=== PATIENT | female | born 1970 | race Caucasian/White ===

== ENCOUNTER → 2019-01-31 15:46 | Outpatient (CLI) | payer BC, SELFPAY ==
--- NOTE | 2019-01-31 15:51 | XR_ITS ---
PROCEDURE: XR LUMBAR SPINE MIN 4V CLINICAL INDICATION: LOW BACK PAIN especially when bending over or heavy lifting COMPARISON: LS5 LUMBAR SPINE 5 VIEWS from 09/08/2012 FINDINGS: There is some straightening of the normal curvature at the thoracolumbar junction. All lumbar vertebrae appear intact. There is prominent disc space narrowing at the L5-S1 level with endplate sclerosis and these are new findings not having been seen on the previous lumbar spine films 09/08/2012 the remaining disc spaces appear normal. There is no pars defect. There is minor sclerosis of the SI joints bilaterally but this was noted previously. There are mild hypertrophic facet changes at the L5-S1 level. IMPRESSION: Interval development of prominent degenerate disc disease L5-S1 along with hypertrophic facet changes at this level as well Dictated by: Dr. Jose Guadalupe Guaman MD 01/31/2019 18:[address] Jose Guadalupe Guaman MD in [place] 01/31/2019 18:50
== END ==
PROVIDERS: PCP Internal Medicine Adolescent Medicine; Visit Provider Internal Medicine Adolescent Medicine
DX: M54.5 Low back pain (principal)
CPT/HCPCS: 72110

== ENCOUNTER → 2020-05-22 10:38 | Outpatient (CLI) | payer BC, SELFPAY ==
[2020-05-22 11:14] LABS: Basophils % 0.6 % (0.1-2.0); Eosinophils # 0.1 K/mm3 (0.0-0.4); Eosinophils % 1.3 % (0.1-12.0); Hematocrit 44.2 % (37.0-47.0); Hemoglobin 14.4 g/dL (12.2-16.2); Lymphocytes # 1.8 K/mm3 (0.7-4.5); Lymphocytes % 26.5 % (10-50); Mean Corpuscular HGB Conc 32.5 g/dL (31.8-35.4); Mean Corpuscular Hemoglobin 29.6 pg (27.0-31.2); Mean Corpuscular Volume 91.2 fl (81-99); Mean Platelet Volume 8.8 fl (7.4-10.4); Monocytes # 0.3 K/mm3 (0.1-1.0); Monocytes % 4.9 % (1.7-9.3); Neutrophils # 4.6 K/mm3 (1.8-7.8); Neutrophils % 66.8 % (37.0-80.0); Platelet Count 301 K/mm3 (142-424); Red Blood Count 4.85 M/mm3 (4.20-5.40); Red Cell Distribution Width 13.2 % (11.5-17.5); White Blood Count 6.9 K/mm3 (4.8-10.8)
[2020-05-22 12:02] LABS: Erythrocyte Sedimentation Rate 6 mm/hr (0-30)
[2020-05-22 12:08] LABS: Chloride 102 mmol/L (98-107); Potassium 4.6 mmoL/L (3.5-5.1); Sodium 138 mmol/L (136-145)
[2020-05-22 12:10] LABS: Alanine Aminotransferase 18 U/L (12-78); Aspartate Amino Transferase 26 U/L (14-36); Blood Urea Nitrogen 10 mg/dl (7-17); Estimated Glomerular Filt Rate 75 ml/min (>60); GFR (African American) 91 ML/MIN (>60)
[2020-05-22 12:11] LABS: Albumin/Globulin Ratio 2.1 (1.1-1.8); Alkaline Phosphatase 63 U/L (38-126); Anion Gap 12.6 mEq/L (5-15); Bilirubin,Total 0.7 mg/dl (0.2-1.3); Carbon Dioxide 28 mmol/L (22.0-30.0); Chol/HDL Ratio 3.4 (1-3.5); Cholesterol 214 mg/dl (140-200); Globulin 2.4 g/dL (1.3-3.2); Glucose 78 mg/dl (74-100); HDL Cholesterol 63 mg/dl (40-60); Total Protein,Serum 7.4 g/dl (6.3-8.2); Triglycerides 83 mg/dl (30-150); VLDL Cholesterol 17 mg/dL (0-40)
[2020-05-22 12:22] LABS: Direct LDL Cholesterol 137.08 mg/dL (100-129)
[2020-05-23 09:15] LABS: FSH 4.2 mIU/mL (.)
[2020-05-29 06:16] LABS: Testosterone, Total, LC/MS 35.8 ng/dL (.); Testosterone,Free 1.6 pg/mL (0.0-4.2)
== END ==
PROVIDERS: Obstetrics & Gynecology; Visit Provider Internal Medicine Adolescent Medicine
DX: N95.1 Menopausal and female climacteric states (principal); E78.5 Hyperlipidemia, unspecified; M17.0 Bilateral primary osteoarthritis of knee; Z79.890 Hormone replacement therapy
CPT/HCPCS: 36415; 80053; 80061; 82670; 83001; 84402; 84403; 85025; 85651

== ENCOUNTER → 2021-02-08 10:10 | Outpatient (CLI) | payer BC, SELFPAY ==
[2021-02-09 10:25] LABS: FSH 2.4 mIU/mL (.)
[2021-02-11 15:35] LABS: Testosterone, Total, LC/MS 42.9 ng/dL (.); Testosterone,Free 1.4 pg/mL (0.0-4.2)
== END ==
PROVIDERS: Visit Provider Obstetrics & Gynecology
DX: N95.1 Menopausal and female climacteric states (principal); Z79.890 Hormone replacement therapy
CPT/HCPCS: 36415; 82670; 83001; 84402; 84403

== ENCOUNTER → 2021-05-13 11:18 | Outpatient (CLI) | payer BC, SELFPAY ==
[2021-05-14 04:29] LABS: FSH 2.2 mIU/mL (.)
[2021-05-27 12:24] LABS: Testosterone, Total, LC/MS 76.1 ng/dL (.); Testosterone,Free 1.8 pg/mL (0.0-4.2)
== END ==
PROVIDERS: Visit Provider Obstetrics & Gynecology
DX: N95.1 Menopausal and female climacteric states (principal); Z79.890 Hormone replacement therapy
CPT/HCPCS: 36415; 82670; 83001; 84402; 84403

== ENCOUNTER → 2021-08-10 11:33 | Outpatient (CLI) | payer BC, SELFPAY ==
[2021-08-11 11:41] LABS: FSH 2.2 mIU/mL (.)
[2021-08-14 05:09] LABS: Testosterone, Total, LC/MS 88.4 ng/dL (.); Testosterone,Free 0.7 pg/mL (0.0-4.2)
== END ==
PROVIDERS: PCP Internal Medicine Adolescent Medicine; Visit Provider Obstetrics & Gynecology
DX: N95.1 Menopausal and female climacteric states (principal); Z79.890 Hormone replacement therapy
CPT/HCPCS: 36415; 82670; 83001; 84402; 84403

== ENCOUNTER → 2021-10-07 10:16 | Outpatient (CLI) | payer BC, SELFPAY ==
--- NOTE | 2021-10-07 10:21 | XR_ITS ---
FINAL REPORT CLINICAL HISTORY: LT FOOT PAIN FINDINGS: AP, oblique and lateral views of the left foot were obtained. There is no prior exam for comparison. There is no acute fracture or dislocation. There is mild degenerative joint disease. Soft tissues are normal. IMPRESSION: No acute osseous abnormality of the left foot. Reviewed, Interpreted and Dictated by Irina Smith MD Transcribed by Savanah Conrad Authenticated and [facility]
== END ==
PROVIDERS: PCP Internal Medicine Adolescent Medicine; Visit Provider Internal Medicine Adolescent Medicine
DX: M79.672 Pain in left foot (principal)
CPT/HCPCS: 73630

== ENCOUNTER → 2021-11-10 11:53 | Outpatient (CLI) | payer BC, SELFPAY ==
[2021-11-10 13:12] LABS: Anion Gap 12.6 mEq/L (5-15); Blood Urea Nitrogen 9 mg/dl (7-17); Calcium 9.1 mg/dl (8.4-10.2); Carbon Dioxide 29 mmol/L (22.0-30.0); Chloride 101 mmol/L (98-107); Chol/HDL Ratio 3.1 (1-3.5); Cholesterol 192 mg/dl (140-200); Estimated Glomerular Filt Rate 75 ml/min (>60); GFR (African American) 91 ML/MIN (>60); Glucose 114 mg/dl (74-100); HDL Cholesterol 62 mg/dl (40-60); Potassium 4.6 mmoL/L (3.5-5.1); Sodium 138 mmol/L (136-145); Triglycerides 126 mg/dl (30-150); VLDL Cholesterol 25 mg/dL (0-40)
[2021-11-10 13:23] LABS: Direct LDL Cholesterol 107.52 mg/dL (100-129)
[2021-11-11 09:26] LABS: FSH 2.5 mIU/mL (.)
[2021-11-13 12:09] LABS: Testosterone, Total, LC/MS 51.4 ng/dL (.)
== END ==
PROVIDERS: PCP Internal Medicine Adolescent Medicine; Referring Provider Obstetrics & Gynecology; Visit Provider Internal Medicine Adolescent Medicine
DX: N95.1 Menopausal and female climacteric states (principal); Z79.890 Hormone replacement therapy
CPT/HCPCS: 36415; 80048; 80061; 82670; 83001; 84402; 84403

== ENCOUNTER → 2021-11-15 09:12 | Outpatient (CLI) | payer BC, SELFPAY ==
[2021-11-15 12:58] LABS: Hemoglobin A1C 5.2 % (4.0-6.0)
== END ==
PROVIDERS: PCP Internal Medicine Adolescent Medicine; Visit Provider Internal Medicine Adolescent Medicine
DX: R73.09 Other abnormal glucose (principal)
CPT/HCPCS: 36415; 83036

== ENCOUNTER → 2022-02-17 11:16 | Outpatient (CLI) | payer BC, SELFPAY ==
[2022-02-18 09:12] LABS: FSH 3.4 mIU/mL (.)
[2022-02-21 02:39] LABS: Testosterone, Total, LC/MS 58.1 ng/dL (.); Testosterone,Free 0.9 pg/mL (0.0-4.2)
== END ==
PROVIDERS: PCP Internal Medicine Adolescent Medicine; Visit Provider Obstetrics & Gynecology
DX: N95.1 Menopausal and female climacteric states (principal); Z79.890 Hormone replacement therapy
CPT/HCPCS: 36415; 82670; 83001; 84402; 84403

== ENCOUNTER → 2022-05-18 10:36 | Outpatient (CLI) | payer BC, SELFPAY ==
[2022-05-19 10:36] LABS: FSH 2.7 mIU/mL (.)
[2022-05-23 20:09] LABS: Testosterone, Total, LC/MS 47.5 ng/dL (.); Testosterone,Free 0.4 pg/mL (0.0-4.2)
== END ==
PROVIDERS: PCP Internal Medicine Adolescent Medicine; Visit Provider Obstetrics & Gynecology
DX: N95.1 Menopausal and female climacteric states (principal); Z79.890 Hormone replacement therapy
CPT/HCPCS: 36415; 82670; 83001; 84402; 84403

== ENCOUNTER → 2022-08-23 10:40 | Outpatient (CLI) | payer BC, SELFPAY ==
[2022-08-24 08:20] LABS: FSH 3.2 mIU/mL (.)
[2022-08-30 00:07] LABS: Free Testosterone (Direct) 1.1 pg/mL (0.0-4.2)
== END ==
PROVIDERS: PCP Internal Medicine Adolescent Medicine; Visit Provider Obstetrics & Gynecology
DX: N95.1 Menopausal and female climacteric states (principal); Z79.890 Hormone replacement therapy
CPT/HCPCS: 36415; 82670; 83001

== ENCOUNTER → 2022-11-22 12:09 | Outpatient (CLI) | payer BC, SELFPAY ==
[2022-11-24 13:58] LABS: FSH 4.3 mIU/mL (.)
[2022-11-30 19:25] LABS: Free Testosterone (Direct) 0.7 pg/mL (0.0-4.2); Testosterone, Total, LC/MS 35.1 ng/dL (.)
== END ==
PROVIDERS: PCP Internal Medicine Adolescent Medicine; Visit Provider Obstetrics & Gynecology
DX: N95.1 Menopausal and female climacteric states (principal); Z79.890 Hormone replacement therapy
CPT/HCPCS: 36415; 82670; 83001

== ENCOUNTER 2023-02-21 10:25 | Outpatient (CLI) | payer BC, SELFPAY ==
[2023-02-22 15:02] LABS: FSH 4.9 mIU/mL (.)
[2023-03-02 18:09] LABS: Free Testosterone (Direct) 1.4 pg/mL (0.0-4.2); Testosterone, Total, LC/MS 73.3 ng/dL (.)
== END 2023-02-21 23:59 ==
LOC: LAB 10:25
PROVIDERS: PCP Internal Medicine Adolescent Medicine; Visit Provider Obstetrics & Gynecology
DX: N95.1 Menopausal and female climacteric states (principal); Z79.890 Hormone replacement therapy
CPT/HCPCS: 36415; 82670; 83001

== ENCOUNTER 2023-05-22 09:57 | Outpatient (CLI) | payer BC, SELFPAY ==
[2023-05-23 08:26] LABS: FSH 5.4 mIU/mL (.); Testosterone,Total 23 ng/dL (4-50)
[2023-05-26 11:17] LABS: Testosterone,Free 0.5 pg/mL (0.0-4.2)
== END 2023-05-22 23:59 ==
LOC: LAB 09:58
PROVIDERS: PCP Internal Medicine Adolescent Medicine; Visit Provider Obstetrics & Gynecology
DX: N95.1 Menopausal and female climacteric states (principal); Z79.890 Hormone replacement therapy
CPT/HCPCS: 36415; 82670; 83001; 84402; 84403

== ENCOUNTER 2023-08-22 10:45 | Outpatient (CLI) | payer BC, SELFPAY ==
[2023-08-23 08:21] LABS: FSH 4.4 mIU/mL (.)
[2023-08-25 02:49] LABS: Testosterone,Free 1.6 pg/mL (0.0-4.2)
[2023-08-28 20:22] LABS: Testosterone, Total, LC/MS 47 ng/dL (.)
== END 2023-08-22 23:59 | disposition home or self-care (01) ==
LOC: LAB 10:45
PROVIDERS: PCP Internal Medicine Adolescent Medicine; Visit Provider Obstetrics & Gynecology
DX: N95.1 Menopausal and female climacteric states (principal); Z79.890 Hormone replacement therapy
CPT/HCPCS: 36415; 82670; 83001; 84402; 84403

== ENCOUNTER 2023-11-21 11:00 | Outpatient (POV) | payer BC, SELFPAY | END 2023-11-21 23:59 | disposition home or self-care (01) | LOC: SC 11-22 06:33 | PROVIDERS: Visit Provider Dermatology | DX: Z00.00 Encounter for general adult medical examination without abnormal findings (principal) ==

== ENCOUNTER 2023-11-21 11:32 | Outpatient (CLI) | payer BC, SELFPAY ==
[2023-11-22 12:20] LABS: FSH 4.1 mIU/mL (.)
[2023-11-26 00:11] LABS: Testosterone,Free 2.1 pg/mL (0.0-4.2)
[2023-12-01 21:28] LABS: Testosterone, Total, LC/MS 55 ng/dL (.)
== END 2023-11-21 23:59 | disposition home or self-care (01) ==
LOC: LAB 11:36
PROVIDERS: PCP Internal Medicine Adolescent Medicine; Visit Provider Obstetrics & Gynecology
DX: N95.1 Menopausal and female climacteric states (principal); Z79.890 Hormone replacement therapy
CPT/HCPCS: 36415; 82670; 83001; 84402; 84403

== ENCOUNTER 2024-02-20 10:46 | Outpatient (CLI) | payer BC, SELFPAY ==
[2024-02-21 03:55] LABS: FSH 3.4 mIU/mL (.)
[2024-02-26 11:10] LABS: Free Testosterone (Direct) 0.6 pg/mL (0.0-4.2)
== END 2024-02-20 23:59 | disposition home or self-care (01) ==
LOC: LAB 10:46
PROVIDERS: PCP Internal Medicine Adolescent Medicine; Visit Provider Obstetrics & Gynecology
DX: N95.1 Menopausal and female climacteric states (principal); Z79.890 Hormone replacement therapy
CPT/HCPCS: 36415; 82670; 83001

== ENCOUNTER 2024-05-21 10:29 | Outpatient (CLI) | payer BC, SELFPAY ==
[2024-05-22 08:16] LABS: FSH 3.1 mIU/mL (.)
[2024-05-25 11:11] LABS: Testosterone,Free 0.5 pg/mL (0.0-4.2)
[2024-06-02 17:22] LABS: Testosterone, Total, LC/MS 68 ng/dL (.)
== END 2024-05-21 23:59 | disposition home or self-care (01) ==
LOC: LAB 10:30
PROVIDERS: PCP Internal Medicine Adolescent Medicine; Visit Provider Obstetrics & Gynecology
DX: N95.1 Menopausal and female climacteric states (principal); Z79.890 Hormone replacement therapy
CPT/HCPCS: 36415; 82670; 83001; 84402; 84403

== ENCOUNTER 2024-08-19 10:57 | Outpatient (CLI) | payer BC, SELFPAY ==
--- OUTSIDE RECORDS SUMMARY | 2024-08-19 11:22 | XMS_ITS | Data Portability ---
Author Organization [facility] NAZANIN Prescott GALLIANO CLOSED Address [address] [place] [address] Care Team Providers Care Web Graphic Designer Name Role Phone KURT MILIAN [employer] Operator SILVERIO MEJIA Primary Care Provider [phone] Assessment No assessment recorded. Plan of Treatment Reminders Order Date Submit Date Provider Last Modified By Organization Details Last Modified Time Details Appointments None record ed. Lab None record ed. Referral None record ed. Procedures None record ed. Surgeries None record ed. Imaging None record ed. Medication Orders None record ed. Patient TargetsNo targets recorded. Patient InstructionsNo instructions recorded. Reason for Referral None Reported. Results Created Date Observation Date Name Description Value Unit Range Abnormal Flag Note LastModifiedBy Organization Detail LastModifiedTime 09/22/19 24 04/10/2023 XR, knee, 4 or more view No observ ation record ed. BARCODE Not Available 2023 10:08:23 Result Notes None recorded. Procedures Surgical History Date Name Laterality Status Provider Name and Address Organization Details Recorded Time procedure on ankle completed [facility] 09/19/2023 08:32:08 section completed [facility] 09/19/2023 08:32:16 Total Hysterectomy completed [facility] 09/19/2023 08:32:21 section completed [facility] 09/19/2023 08:32:26 laparoscopy completed [facility] 09/19/2023 08:32:40 section completed [facility] 09/19/2023 08:32:45 laparoscopy completed Kathie Arita [facility] 09/19/2023 08:32:53 Imaging Results None recorded. Procedure Notes None recorded. Medical Equipment None Reported. Allergies Allergen ID Allergen Name Allergen Category Reaction Reaction Severity Criticality Documentation Date Start Date Code Code System Note Provider Name and Address Organization Details Recorded Time 127805 codeine medicatio n nausea mild low 09/19/2023 2670 RxNorm Kathie Arita [facility] 08:28:50 Medications Name Sig Start Date Stop Date Status Note LastModified by Organization Details LastModified Time Celebrex 200 mg capsule Take 1 capsule every day by oral route. active Not Available Not Available No t Available magnesium 200 mg once a day active Not Available Not Available N ot Available Vitamin C 1000 mg once a day active Not Available Not Available N ot Available vitamin E 400 iu once a day active Not Available Not Available N ot Available Fish Oil 2400 mg once a day active Not Available Not Available N ot Available Vitamin D3 5000 iu once a day active Not Available Not Available N ot Available Vitamin B12 5000 mcg once a day active Not Available Not Available N ot Available L-Methylfol ate 1700 mcg active Not Available Not Available Not Available turmeric curcumin 1500 mg once a day active Not Available Not Available N ot Available Vitals Date Recorded Body weight Body mass index (BMI) Body height Respiratory rate Heart rate Oxygen saturation Oxygen saturation in Arterial blood by Pulse oximetry Systolic And Diastolic Provider Name and Address Organization Details Last Updated DateTime 4 34856.3 3 g 27.4 kg/m2 172.72 cm 16 /min 66 /min 99 % 99 % 116/78 mm[Hg] Kathie Arita [facility] 08:33:58 Social History Question Answer Notes LastModified by Organizat ion Details LastModified Time Tobacco Smoking Status [facility] 08:31:54 What Was The Date Of Your Most Recent Tobacco Screening? 09/19/2023 Information not available 09/19/2023 Sex: Female Functional Status Question Answer Note LastModified by Organization D etails LastModified Time What is your level of alcohol consumption? None [email or web address] Information not available 09/19/2023 Mental Status None recorded. Family History Nothing Reported. Medical History No medical history recorded. Gynecological HistoryNo gynecological history recorded. Obstetrics History GPAL:G 0 P 0 0 0 0 Past Encounters Encounter ID Performer Location Encounter Start Date Encounter Closed Date Diagnosis/Indication Diagnosis SNOMED-CT Code Diagnosis ICD10 Code Diagnosis Note [id number] KURT MILIAN MD [facility] [address] [place] [address] 09/19/2023 08:09:23 09/20/2023 04:21:52 Bilateral osteoarthritis of knees 9624193454 83274 M17.0 - I have discussed the importance of weight management including a healthy diet for weight loss and regular exercise (low intensity exercises such as aquatic therapy, biking, walking) for cardiovasc ular and joint health.- I discussed the subjective benefit shown in using daily over the counter Tumeric and glucosamin e/chondroi tin.- I have advised that over the counter Tylenol can be used as needed for joint pains.- I have discussed other potential treatment options discussed as well with the patient (i.e. Steroid injections , surgical options for end stage disease).- she is allergic to viscosuppl ement injections - discussed she can call if the Melendrez's cyst flares and we can drain this if needed for symptom relief, but we did discuss that these have a tendency to come right back Anti-nucle ar factor detected [id number] R76.8 + LIZZY <1:80 Serologies such as LIZZY are very nonspecifi c and by themselves cannot make a diagnosis of autoimmune arthritis such as lupus. They can be positive in up to 20% of the general population . She does not have evidence of synovitis on exam, nor does she have other systemic findings concerning for lupus or inflammato ry arthritis at this time. LIZZY can also be positive in other autoimmune diseases such as hypothyroi dism/hyper thyroidism , IBD, autoimmune hepatitis, and various infectious diseases (HCV, EBV, HIV, parvovirus , etc.) Health Concerns Section Related Observation LastModified by Organization Detai ls LastModified Time None Recorded Concern Status LastModified by Organization Details LastModified Time None Recorded Advance Directives Directive None Recorded Payers Insurance Date Sequence Insurance Name Policy Number Policy Campbell Covered Member ID Campbell Member ID Guarantor Name 09/19/2023 1 HAM[place]: [employer] [place] - [employer] [address] Robison [id number] Liz Robison Notes Date Note Type Note Provider Name and Address Organization Details Recorded Time 09/19/2023 text/html Liz Robison i s a 53 yo woman with past medical history of osteoarthritis who presents for further evaluation. She had a reaction with the last round of viscosupplement injections. She has been following with Dr. Soriano for osteoarthritis in the hands. Went to Dr. Bedolla who ran an arthritis panel and she has a mildly + LIZZY <1:80. 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 This will get worse and inflamed. Sleeping is harder now.She is very active at home and at work. Fish oil and turmeric. Starting in February of this year.Switched from meloxicam to celebrex which has helped a bit. Used to be more limber. Now stiff. KURT MILIAN MD [address] [place], [address], [facility] 09/19/2023 09:26:01 OBGyn Episode No OBEpisode recorded.
--- OUTSIDE RECORDS SUMMARY | 2024-08-19 11:22 | XMS_ITS | Clinical Summary ---
Author Organization [facility] Address [address] [place] [address] Care Team Providers Care Sign Out Clerk Name Role Phone Nate Zuniga MD Primary Care Provider [phone] Allergies Active Allergy Reactions Criticality Noted Date Comments Codeine Nausea 05/25/2020 Oxycodone Other - please docum ent in the comment field Low 03/29/2019 Medications meloxicam (Mobic) 15 MG tablet Take 1 tablet (15 mg) by mouth 1 (one) time each day. 02/05/2023 Active Social History Tobacco Use Types Packs/Day Years Used Date Smoking Tobacco: Never Smokeless Tobacco: Never Tobacco Cessation:Counseling Given: Not Answered Alcohol Use Standard Drinks/Week Comments Never 0 (1 standard drink = 0.6 oz pur e alcohol) Comments No Sex and Gender Information Value Date Recorded Sex Assigned at Not on file Legal Sex Female 8:25 PM EDT Gender Identity Not on file Sexual Orientation Not on file Last Filed Vital Signs Vital Sign Reading Time Taken Comments Blood Pressure 152/91 04/10/2023 2:16 PM EST Pulse 78 04/10/2023 2:16 PM EST Temperature - - Respiratory Rate - - Oxygen Saturation 98% 04/10/2023 2:16 PM EST Inhaled Oxygen Concentration - - Weight 77.1 kg (170 lb) 04/10/2023 2:16 PM EST Height 165.1 cm (5' 5 ) 04/10/2023 2:16 PM EST Body Mass Index 28.29 04/10/2023 2:16 PM EST Plan of Treatment Health Maintenance Due Date Last Done Comments [facility]-Depression Screening 1968 [facility]-HIV Screening 1968 [facility]-Hepatitis C Screening 1968 [facility]-Infant/Child/Adol SDOH Screenings 1968 [facility]- SDOH Screenings 1986 [facility]-Adult SDOH Screenings 1986 [facility]-Hepatitis B Vaccines (1 of 3 - 19+ 3-dose series) 1987 CT Colonography 2013 Colonoscopy 2013 FIT-DNA 2013 FIT 2013 FOBT 2013 Sigmoidoscopy 2013 [facility]-Colorectal Cancer Screening 2013 [facility]-Pneumococcal Vaccine: 50+ Years (1 of 1 - PCV) 2018 [facility]-Zoster Vaccines (1 of 2) 2018 [id number] Vaccine (2 - season) 2023 11/27/2020 [facility]-Breast Cancer Screening 09/08/202408/14, 06/15/2021, 06/04/2020, Additional history exists [facility]-Influenza Vaccine (#1) 2024 [facility]-DTaP,Tdap,and Td Vaccines (2 - Td or Tdap) 09/02/2031 09/01/2021 [facility]-Obesity Intervention Completed 04/10/2023 HPV Vaccines Aged Out No longer eligi ble based on patient's age to complete this topic [facility]-HIB Vaccines Aged Out No longer e ligible based on patient's age to complete this topic [facility]-Hepatitis A Vaccines Aged Out No longer eligible based on patient's age to complete this topic [facility]-IPV Vaccines Aged Out No longer e ligible based on patient's age to complete this topic [facility]-Rotavirus Vaccines Aged Out No lo nger eligible based on patient's age to complete this topic Insurance SCOTT Care Teams Sign Out Clerk Relationship Specialty Start Date End Date Nate Zuniga MD [address] [place] [address] PCP - General Internal Medicine 03/30/23
[2024-08-20 08:32] LABS: FSH 2.3 mIU/mL (.)
[2024-08-22 03:36] LABS: Testosterone,Free 0.3 pg/mL (0.0-4.2)
[2024-08-26 01:15] LABS: Testosterone, Total, LC/MS 55 ng/dL (.)
== END 2024-08-19 23:59 | disposition home or self-care (01) ==
LOC: LAB 10:58
PROVIDERS: PCP Internal Medicine Adolescent Medicine; Visit Provider Obstetrics & Gynecology
DX: N95.1 Menopausal and female climacteric states (principal); Z79.890 Hormone replacement therapy
CPT/HCPCS: 36415; 82670; 83001; 84402; 84403

== ENCOUNTER 2024-11-25 11:36 | Outpatient (CLI) | payer BC, SELFPAY ==
--- OUTSIDE RECORDS SUMMARY | 2024-11-25 11:38 | XMS_ITS | Clinical Summary ---
Author Organization [facility] Address [address] [place] [address] Care Team Providers Care Care Clinician Name Role Phone Nate Zuniga MD Primary Care Provider Allergies Active Allergy Reactions Criticality Noted Date Comments Codeine Nausea Only 05/25/2020 Oxycodone GI Intolerance 03/29/2019 Medications celecoxib (CeleBREX) 200 MG capsule take 1 capsule by mouth once daily for 90 days Active [facility]-3 Fatty Acids (Fish Oil) 875 MG capsule 2400 mg once a day Active Vitamin E 400 units tablet 400 iu once a day Active Cholecalciferol (Vitamin D-3) 125 MCG (5000 UT) tablet 5000 iu once a day Active Ascorbic Acid (Vitamin C) 500 MG capsule 1000 mg once a day Active vitamin B-12 (CYANOCOBALAMIN ) 2500 MCG sublingual tablet tablet 5000 mcg once a day Active TURMERIC-MICHELLE PO curcumin 1500 mg once a day Active Magnesium 200 MG tablet 200 mg once a day Active L-METHYLFOLATE- METHYLCOBALAMIN PO 1700 mcg Active Active Problems No known active problems Family History Medical History Relation Name Comments Cervical cancer Mother Estrellita 40's Breast cancer Neg Hx Ovarian cancer Neg Hx Relation Name Status Comments Mother Estrellita Social History Tobacco Use Types Packs/Day Years Used Date Smoking Tobacco: Never Smokeless Tobacco: Never Alcohol Use Standard Drinks/Week Comments Never 0 (1 standard drink = 0.6 oz pur e alcohol) AUDIT-C Answer Date Recorded Q1: How often do you have a drink containing alc ohol? Never 05/25/2020 Average Number of Drinks Not on file 021 Frequency of Binge Drinking Not on file 05/14 Comments No Sex and Gender Information Value Date Recorded Sex Assigned at Not on file Legal Sex Female 10:36 AM EDT Gender Identity Not on file Sexual Orientation Not on file Last Filed Vital Signs Vital Sign Reading Time Taken Comments Blood Pressure 136/72 02/28/2024 10:08 AM EST Pulse 62 01/18/2021 12:31 PM EST Temperature - - Respiratory Rate - - Oxygen Saturation - - Inhaled Oxygen Concentration - - Weight 83 kg (183 lb) 02/28/2024 10:08 AM EST Height 171.2 cm (5' 7.4 ) 02/28/2024 10:08 AM ES T Body Mass Index 28.32 02/28/2024 10:08 AM EST Plan of Treatment Upcoming Encounters Date Type Department Care Team (Late st Contact Info) Description 03/03/2025 9:30 AM EST Office Visit [facility] [address] [place] [address] Raffi Soriano MD [address] [facility] [address] [place] [address] Health Maintenance Due Date Last Done Comments Annual Gynecologic Pelvic an d Breast Exam 1968 COLOGUARD 2013 COLON CANCER SCREENING 5 YEA R SIGMOIDOSCOPY 2013 COLONOSCOPY [address] CANCER SCREENING [address] COLONOGRAPHY 2013 FECAL OCCULT BLOOD TEST 2013 FIT Testing (1 year) 2013 Pneumococcal Vaccine 50+ (1 of 1 - PCV) 2018 ZOSTER VACCINE (1 of 2) 2018 ANNUAL PHYSICAL 05/25/2020 HEPATITIS C SCREENING 05/25/2020 INFLUENZA VACCINE 09/13/2024 MAMMOGRAM 12/11/2025 12/12/2023, 11/14, 09/08/2022, Additional history exists TDAP/TD VACCINES (2 - Td or Tdap) 09/02/2031 022 Procedures Procedure Name Priority Date/Time Associated Diagnosis Comments MAMMO SCREENING DIGITAL TOMOSYNTHESIS BILATERAL W CAD Routine 12/07/2023 9:45 AM EDT Visit for screening mammogram from Last 3 Months or Most Recently Relevant to Health Maintenance Results * Mammo Screening Digital Tomosynthesis Bilateral With CAD (12/07/2023 9:45 AM EDT) Anatomical Region Laterality Modality Breast N/A Mammography 12/12/2023 9:34 AM EDT Impressions 12/12/2023 9:34 AM EDT Negative bilateral mammogram. RECOMMENDATION: Continue annual screening mammography. BI-RADS CATEGORY 1, NEGATIVE. CAD was utilized. The standard false-negative rate of mammography is between 10% and 25%. Complex patterns or increased breast density will markedly elevate the false-negative rate of mammography. A letter, in lay terminology, with the results of this exam will be mailed to the patient. This report was finalized on 12/12/2023 9:[address] Deb Pulido MD. Narrative 12/12/2023 9:34 AM EDT DIGITAL SCREENING MAMMOGRAM WITH TOMOSYNTHESIS HISTORY: Screening Mammography. Low dose full field digital breast tomosynthesis imaging was performed with 2D and 3D acquisitions consisting of bilateral CC and MLO views. Examination is compared to prior examination dating back to 01/04/2016. Examination is read in conjunction with computer aided detection. FINDINGS: There are scattered areas of fibroglandular density. No suspicious masses, microcalcifications or areas of architectural distortion are present. Marcio Matt MD IMG MAMMOGRAPHY ORDERABL ES Final Result from Last 3 Months or Most Recently Relevant to Health Maintenance Insurance [facility] Care Teams Care Clinician Relationship Specialty Start Date End Date Nate Zuniga MD [address] [facility] [address] [place] [address] PCP - General 12/10/14
--- OUTSIDE RECORDS SUMMARY | 2024-11-25 11:38 | XMS_ITS | Clinical Summary ---
Author Organization [facility] Address [address] [place] [address] Care Team Providers Care Freight Weigher Name Role Phone Nate Zuniga MD Primary Care Provider [phone] Allergies Active Allergy Reactions Criticality Noted Date [...] 2018 [facility]-Zoster Vaccines (1 of 2) 2018 [facility]-Breast Cancer Screening 09/08/2024 07/08/2022, 06/15/2021, 06/04/2020, Additional history exists [id number] Vaccine (2 - 2024- season) 2024 11/27/2020 [facility]-Influenza Vaccine (#1) 2024 [facility]-DTaP,Tdap,and Td Vaccines [...] complete this topic Insurance [employer]OTT Care Teams Freight Weigher Relationship Specialty Start Date End Date Nate Zuniga MD [address] [place] [address] PCP - General Internal Medicine 03/30/23
--- OUTSIDE RECORDS SUMMARY | 2024-11-25 11:38 | XMS_ITS | Patient Health Record ---
Author Organization [facility] Address [address] [facility] [address] [place] [address] Care Team Providers Care Senior Quantity Surveyor Name Role Phone Mary Delvalle Unavailable [phone] Allergies Allergen (clinical drug ingredient) Drug/Non Drug Allergy documented on EMR Reaction Allergy Type Onset Date Status CODEINE PHOSPHATE (CODEINE PHOSPHATE SOLN) Unspecified Drug Allergy 04/23/2019 Active PERCOCET (OXYCODONE-ACETAMINO PHEN TABS) Unspecified Drug Allergy 04/23/2019 Active Reason For Referral No Information Problems Problem Type SNOMED Code ICD Code Onset Dates Problem Status W/U Status Risk Notes Problem Hormone replacement therapy (181528358) Counseling for estrogen replacement therapy (Z79.890) 04/23/19 Active confirmed Hormone replacement therapy Problem Dysuria (68628631) Burning with urination (R30.0) 11/25/19 Active confirmed DYSURIA Problem Menopause (384333374) *Menopausal and female climacteric states (Code also, associated symptoms) (N95.1) 04/23/19 Active confirmed Menopausal and female climacteric states Problem Urgent desire to urinate (60812872) Urgency of micturation (R39.15) 11/25/19 Active confirmed Urinary urgency Problem Increased frequency of urination (170471227) FOM (frequency of micturition) (R35.0) 11/25/19 Active confirmed URINARY FREQUENCY Plan Of Treatment No Information Medical (General) History Medical History History ICD Code Endometriosis UTI Yeast Infections ABORTIONS: 1 OXYBUTYNIN CHLORIDE ER 10 MG ORAL TABLET EXTENDED RELEASE 24 HOUR, ORAL MELOXICAM 15 MG ORAL TABLET, ORAL FLAVOXATE HCL 100 MG ORAL TABLET, ORAL E 12.5 AND T 25 PELLETS MACRODANTIN 50 MG ORAL CAPSULE, ORAL L-METHYLFOLATE TABLET Surgical History Surgery Date(Month/Year) Broken Ankle (right) 2004 Cesaren Section x3
[2024-11-26 08:16] LABS: FSH 2.2 mIU/mL (.); Testosterone,Total 28 ng/dL (4-50)
== END 2024-11-25 23:59 | disposition home or self-care (01) ==
LOC: LAB 11:36
PROVIDERS: PCP Internal Medicine Adolescent Medicine; Visit Provider Obstetrics & Gynecology
DX: N95.1 Menopausal and female climacteric states (principal); Z79.890 Hormone replacement therapy
CPT/HCPCS: 36415; 82670; 83001; 84402; 84403